=== PATIENT | female | born 1975 | race Caucasian/White ===

== ENCOUNTER → 2019-02-20 12:38 | Outpatient (CLI) | payer OTHER | END | disposition home or self-care (01) | LOC: D.NM 12:38 | PROVIDERS: ATTEND Registered Nurse Emergency | DX: K80.50 Calculus of bile duct without cholangitis or cholecystitis without obstruction (principal) ==

== ENCOUNTER 2019-03-23 05:51 | Day surgery (SDC) | payer OTHER ==
[2019-03-18 14:12] LABS: HEMATOCRIT 37.8 % (36.0-48.0); HEMOGLOBIN 12.4 g/dL (12-16); MCH 28.1 pg (26.0-34.0); MCHC 32.8 g/dL (31.0-37.0); MCV 85.7 fL (80.0-100.0); MEAN PLATELET VOLUME 10.2 fL (7.4-10.4); RBC 4.41 10x6/uL (4.00-5.40); RDW 12.9 % (11.5-14.5); WBC 5.1 10x3/uL (4.8-10.8)
[~2019-03-23] VITALS: Ht 170.2 cm; Wt 89.8 kg
[~2019-03-23 05:51] MED LIST: ALBUTEROL SULF8.5 GM INH; CELEXA20 MG PO; LISINOPRIL5 MG PO; MOBIC7.5 MG PO; OMEPRAZOLE20 M1 PO; ZPAK PO
[2019-03-23 07:49] VITALS: BP 142/82; Ht 170.2 cm; Wt 89.8 kg
[2019-03-23] MEDS ORDERED: ZYLOPRIM100 MG PO (07:49)
[2019-03-23] MEDS ORDERED: HYDROCODON-ACE1 EAC7 PO (12:11)
--- NOTE | 2019-03-23 20:36 | NUR ---
1330 IV REMOVED PRESSURE HELD. INSTRUCTIONS GIVEN. 1355 VOIDED X1 1400 D/C HOME WITH FAMILY
== END 2019-03-23 14:00 | disposition home or self-care (01) ==
LOC: D.OPS 05:51 → D.PAN 08:00 → D.OPS 08:30
PROVIDERS: Anesthesiology; ATTEND Surgery
DX: K82.8 Other specified diseases of gallbladder (principal); I10 Essential (primary) hypertension; E78.00 Pure hypercholesterolemia, unspecified; J45.909 Unspecified asthma, uncomplicated